=== PATIENT | female | born 1955 | race Asian ===

== ENCOUNTER 2025-03-09 21:59 | Observation (INO) | payer OTHER, MEDICARE, SELFPAY ==
[2025-03-09 18:48] VITALS: BP 161/89
[2025-03-09 19:06] LABS: Hematocrit 34.9 % (37.0-47.0); Hemoglobin 11.5 g/dL (12.0-16.0); Mean Corp Hgb Conc. 33.0 g/dL (33.0-37.0); Mean Corpuscular Volume 93.3 fL (81.0-99.0); Nucleated Red Blood Cells % 0 %; Platelet Count 189 10^3/uL (130-400); Red Cell Dist. Width 12.3 % (11.5-14.5)
[2025-03-09 19:35] LABS: ALT (SGPT) 31 U/L (0-35); AST (SGOT) 32 U/L (14-36); Albumin 4.4 g/dl (3.5-5.0); Alkaline Phosphatase 47 U/L (38-126); Blood Urea Nitrogen 21 mg/dl (7-17); Calcium 9.5 mg/dl (8.4-10.2); Carbon Dioxide 31 mmol/L (22-30); Chloride 106 mmol/L (98-107); Glucose 126 mg/dl (70-99); Lipase 122 U/L (23-300); Potassium 3.7 mmol/L (3.5-5.1); Sodium 142 mmol/L (135-145); Total Protein 7.4 g/dl (6.3-8.2); eGFR > 60.00
[2025-03-09 20:09] VITALS: BMI 19.4
[2025-03-09 20:28] VITALS: BP 116/62
--- NOTE | 2025-03-09 20:46 | ED.GENMED ---
History of Present Illness
General
Chief Complaint: Vomiting Blood
Source: patient
Exam Limitations: none
Time Seen by Provider: 03/09/25 20:39
History of Present Illness
History of Present Illness:
See MDM
Past History
Past History
ED Past Medical History: None
ED Past Surgical History: None
Social History
Tobacco: Non-smoker
Alcohol: None
Phy Exam
Physical Exam
Physical Exam:
See MDM
Course
Orders/Labs/Results
Orders:
Orders
03/09/25 19:00
Type And Crossmatch [Type+Screen] Urgent
Complete Blood Count/With Diff Urgent
Comprehensive Metabolic Panel Urgent
Lipase Urgent
03/09/25 20:45
IV Insert/Care/Rem.- Treatment PRN
Pantoprazole 80 mg/100 ml Nss [Protonix] 80 mg in 100 ml IV NOW
Pantoprazole [Protonix IV] 80 mg IV NOW STA
Abnormal Lab Results
03/09/25
19:00
RBC 3.74 L 10^6/uL
(4.20-5.40)
Hgb 11.5 L g/dL
(12.0-16.0)
Hct 34.9 L %
(37.0-47.0)
Carbon Dioxide 31 H mmol/L
(22-30)
BUN 21 H mg/dl
(7-17)
Glucose 126 H mg/dl
(70-99)
03/09/25 19:00
03/09/25 19:00
Vital Signs
Initial and Last Documented VS:
Initial Vital Signs
Temp Pulse Resp BP Pulse Ox
98.6 F 86 16 161/89 98
03/09/25 18:48 03/09/25 18:48 03/09/25 18:48 03/09/25 18:48 03/09/25 18:48
Last Documented Vital Signs
Temp Pulse Resp BP Pulse Ox
98.6 F 86 16 161/89 98
03/09/25 18:48 03/09/25 18:48 03/09/25 18:48 03/09/25 18:48 03/09/25 20:25
MDM/Problems Addressed
Differential Diagnosis Includes:
Note:
CHIEF COMPLAINT(S)
Vomiting blood starting at 6 p.m. today.
HISTORY OF PRESENT ILLNESS
The patient is a 69-year-old female with no significant past medical history, medications, or known allergies, presenting with hematemesis. The vomiting of blood began at 6 p.m. today. The patient reported vomiting 'two or three times' and described
the vomitus as red in color with some clots. There is an associated single episode of nosebleed following the vomiting that was short-lived. She denies any abdominal pain or recent dietary changes. The patient does not take blood thinners. The
vomiting episode appears isolated, with no further symptoms reported.
PHYSICAL EXAM
General: Alert, no acute distress.
Skin: Warm, dry.
Head: Normocephalic, atraumatic
Neck: Appears supple, trachea midline.
Eyes, Ears, Nose, Mouth, and Throat: Moist mucous membranes. Posterior pharynx clear
Cardiovascular: No signs of cyanosis
Respiratory: Respirations are non-labored.
Abdomen: Non-distended. Soft and nontender
Musculoskeletal: No deformities
Neurological: No focal neurological deficit observed.
Psychiatric: Cooperative, appropriate mood and affect.
PLAN
The plan includes starting the patient on pantoprazole (Protonix) to reduce stomach acid, which could assist in healing a potential stomach ulcer. The patient is recommended to stay overnight for observation to monitor the effect of the medication
and ensure there is no further bleeding. The need for an upper gastrointestinal endoscopy is considered, though not immediately planned�mentioned for potential assessment to rule out ulcers or malignancy if symptoms persist.
DIFFERENTIAL DIAGNOSIS
The Differential Diagnosis includes, in no particular order and is not limited to:
- Peptic ulcer disease
- Gastritis
- Esophageal varices
- Jihan-Beauchamp tear
- Esophageal cancer
- Gastric cancer
- Coagulation disorder
- Vascular malformation
- Foreign body ingestion
- Angiodysplasia
SUMMARY OF ENCOUNTER
The patient was seen in the emergency department due to vomiting blood with a potential isolated episode, accompanied by a brief nosebleed that followed the emesis. The main intervention was the initiation of pantoprazole therapy, aiming to reduce
stomach irritation potentially due to an ulcer or other gastrointestinal issues. Given the uncertainty of the cause, hospital admission was considered prudent to observe any overnight changes, although the nature of the follow-up and the necessity
of an endoscopy the next day are contingent upon the patients condition and response to medication.
DISPOSITION
Admission for overnight observation.
MEDICAL DECISION MAKING
-Category 1 Tests and documents: Lab results were mentioned indirectly with 'Her blood looks fine.'
-Risk:
Prescription drug management with pantoprazole initiated. The possibility of an endoscopic procedure was discussed. Decision taken to admit due to the complexity of the presenting complaint and the potential severity of the underlying condition.
DIAGNOSIS
- Hematemesis (K92.0)
- Observation for possible peptic ulcer disease (K25.9)
SUMMARY OF ENCOUNTER
The patient presented with several episodes of bright red hematemesis with clots. Despite being stable, there is concern due to the patients age and the nature of her symptoms. It was decided to start a proton pump inhibitor (PPI) drip to reduce
gastric acid production and potentially aid in healing any gastric mucosal injury. Admission to the hospital was planned to allow further evaluation and monitoring, with a gastroenterology consultation and possible endoscopy considered if deemed
necessary to identify the source of bleeding.
DISPOSITION
Admission for further evaluation and monitoring.
PLAN
Initiate PPI therapy and admit for observation. Consider a gastroenterology evaluation and possible endoscopy if symptoms persist or worsen.
MEDICATION RECONCILIATION
Initiated a PPI drip for treatment.
MEDICAL DECISION MAKING
-Complexity of Data Reviewed: Chronic conditions affecting care; no significant past medical history noted. Differential Diagnosis includes peptic ulcer disease, gastritis, esophageal varices, Jihan-Beauchamp tear, esophageal cancer, gastric cancer,
coagulation disorder, vascular malformation, foreign body ingestion, and angiodysplasia.
-Data:
Category 1: Tests and documents � Not available in back gray cloth washer.
Category 3: Discussion of management with hospital service regarding admission and need for gastroenterology evaluation.
-Risk: Prescription drug management was initiated with a PPI drip. An admission decision was made due to the potential complexity and severity of the underlying condition.
DIAGNOSIS
- Hematemesis (K92.0)
- Observation for possible peptic ulcer disease (K25.9)
*Pulse Oximetry
SaO2: 98
Oxygen Mode of Delivery: Room air
Patient hypoxic: no
*Critical Care Note
Total Time (30-74mins, 75-104mins- exclusive of procedures): Not Applicable
ED Attending Note
-
Portions of this chart may have been created with voice recognition software.� Occasional wrong word or��sound alike� substitutions may have occurred due to the inherent limitations of voice recognition software.
Discharge Plan
Departure
Patient Disposition: Admit
Date of Disposition: 03/09/25
Time of Disposition: 20:58
Admit to: Med/Surg
Presentation/result/management discussed w/ accepting MD/DO: Hospitalist
Discharge Problem:
Hematemesis
Interventions
Interventions:
*Risk Screen - Suicide Last Done: 03/09/25 18:48
*General Assessment Last Done: 03/09/25 20:08
*Neglect/Abuse Screening Last Done: 03/09/25 20:09
*ED- Fall Risk Assessment Last Done: 03/09/25 20:08
*ED COVID-19 Vaccine History Last Done: 03/09/25 20:08
*ED Influenza Vaccine History Last Done: 03/09/25 20:08
IU-Eqrwax-Gupakwijat Assessment Last Done: 03/09/25 20:25
ED- Cardiac Assessment Last Done: 03/09/25 20:25
ED- Pulmonary Assessment Last Done: 03/09/25 20:25
Discharge Date and Time
Print Language: KENYAN
[2025-03-09 21:00] VITALS: BP 131/60
--- NOTE | 2025-03-09 21:00 | W.PN.UPDATE ---
Update Note
Progress Note Update
This note serves as an addendum to the H&P by ceramic worker Brody Hightower
HPI
64F HX Hep B ( Treated) No prior HX seen at ER:
- vomiting red blood but no clots
- not on blood thinner
- denied abdominal pain
- also nose bleed after vomiting - has stopped
Relevant VS
Temp Pulse Resp BP Pulse Ox
98.6 F 86 16 161/89 98
03/09/25 18:48 03/09/25 18:48 03/09/25 18:48 03/09/25 18:48 03/09/25 20:52
PE
Gen: NAD
HEENT: anicteric
Neck: supple
Lungs: CTA
Cor: RRR S1 S2
Abdomen:�Non-distended. Soft and nontender
SCRAP METAL PROCESSING WORKER: AAO3 , NFND
Relevant Data�
03/09/25
19:00
WBC 5.6
Hgb 11.5 L
MCV 93.3
Plt Count 189
Carbon Dioxide 31 H
BUN 21 H
Creatinine 0.8
eGFR > 60.00
Total Bilirubin 0.4
AST 32
ALT 31
Alkaline Phosphatase 47
Lipase 122
NO PRIOR hospitalist admission:
ASSESSMENT & PLAN
Pending Rx reconciliation
Acute hematemesis; DDX: gastric CA , PUD, Gastritis, Esophageal varices, Jihan-Beauchamp tear, epistaxis
Normocytic anemia - acute vs chronic
Hemodynamically stable
Denied NSAIDS
Denied ETOH
HX UGIB 5 yrs ago s/p EGD at [facility] ? esophageal stricture
- T & S
- Blood consent
- Trend H & H
- Agree with PPI gtt
- IVF
- NPO except ice chips
- GI consult
HX Hep B on PO Vemlidy
- Hold chronic Vemlidy
DVT Px: SCD
Full code
TLM
--- NOTE | 2025-03-09 21:00 | HPS.HSE ---
Family Physician
-
Family Physician:
Chief Complaint
-
Hematemesis
History of Present Illness
69-year-old female complaining of vomiting that began at 6 PM today 2-3 times. She reports the vomit was red in color . During her second time of vomiting it also came out of her nose I reviewed pictures on her phone that showed small amount
bright red thin vomit in the sink. The patient denies alcohol use, NSAID use, aspirin use. She drinks 16 ounce coffee a day and Body Armor with no caffeine. She denies fever, chills, chest pain palpitations, cough, shortness of breath abdominal
pain, diarrhea, urinary symptoms. She is history of hepatitis B since prior to 1995 when she came to [facility] she is currently on Vemlidy 25 mg daily, History of GI bleed approximately 5 years ago thinks at [facility] had endoscopy possible
stricture per family member but unsure
Medical History
Past Medical History
Past Medical History: Reports Other
Additional Past Medical History:
Hepatitis B since before 1995
History of GI bleed approximately 5 years ago thinks at [facility] had endoscopy possible stricture per family member but unsure
Past Surgical History: Reports None
Social History
Tobacco: Non-smoker
Alcohol: None
Drug: None
Personal: Single
Living: With Family
Employment: Retired
Family History
Family History: Not pertinent
Allergies / Home Medications
Allergies reflects when Allergies were last updated in [facility].
Home Medications with original date entered in [facility]
Allergy/Medication List:
Allergies
Allergy/AdvReac Type Severity Reaction Status Date / Time
No Known Allergies Allergy Verified 03/09/25 18:52
Home Medications
tenofovir alafenamide 25 mg tablet (Vemlidy) 25 mg PO DAILY 03/09/25
Review of Systems
-
History Source: Patient and Family (Family member translating as patient speaks New Zealander)
A 12 point ROS was completed and negative except as noted: Yes
Constitutional: Denies Fever or Chills
EENT: Denies Sore Throat or Runny Nose
Respiratory: Denies Cough or Trouble Breathing
Cardiac: Denies Chest Pain, Diaphoresis, Palpitations or Syncope
Abdomen/GI: Reports Nausea and Vomiting (Bright red in color x 3 small episodes); Denies Abdominal Pain, Diarrhea, Constipated, Bloody Stools or Black Stools
: Denies Dysuria, Frequency, Flank Pain, Incontinence or Difficulty Voiding
Musculoskeletal: Denies Joint Pain or Edema
Skin: Denies Itching or Rash
Neurological: Denies Dizzy, Headache or Weakness
Endocrine: Reports No Symptoms
Hematologic/Lymphatic: Reports No Symptoms
Psych: Reports Calm
Physical Exam
Vital Signs
Vital Signs
Temp Pulse Resp BP Pulse Ox
98.6 F 86 16 161/89 98
03/09/25 18:48 03/09/25 18:48 03/09/25 18:48 03/09/25 18:48 03/09/25 20:52
Physical Exam
General: Comfortable and Conversant; No Pain, Fever or Chills
HEENT: NormoCephalic, Anicteric, Moist mucous membranes, PERRLA, [place] Conjunctivae and No Ptosis
Respiratory: Clear; No Wheezes, Rales or Rhonchi
Cardiac: S1/S2 and Regular Rhythm; No Murmur, Rub, Gallop or Peripheral Edema
Breast: Deferred by me
GI: Soft, Non Tender, Non Distended, Normal Bowel Sounds and No Hepatosplenomegaly
Rectal: Deferred by Provider
Genito-urinary: Deferred by me
Musculoskeletal: No Clubbing, No Cyanosis and No Edema
Skin: Warm and Dry; No Rash or Jaundice
Neuro: AO x 3 (Per sister at bedside translating in New Zealander), No Motor Deficits, Nonfocal/grossly intact, Cranial Nerves Intact and No Sensory Deficits; No Slurred Speech, Facial Droop, Tremors or Sedated
Psych: Calm
Laboratory Results
-
03/09/25 19:00
03/09/25 19:00
Laboratory Results
Total Bilirubin 0.4 mg/dl (0.2-1.3) 03/09/25 19:00
AST 32 U/L (14-36) 03/09/25 19:00
ALT 31 U/L (0-35) 03/09/25 19:00
Alkaline Phosphatase 47 U/L (38-126) 03/09/25 19:00
Lipase 122 U/L (23-300) 03/09/25 19:00
Impression/Plan
-
Impression/plan:
Observation MedSurg
#Hematemesis concern for GI bleed/PUD/Jihan-Beauchamp tear/Malignancy
#History of GI bleed approximately 5 years ago thinks at [facility] had endoscopy possible stricture per family member but unsure
- Reported 3 episodes of vomiting red in color with clots
- Hgb 11.5 no prior labs
--type and screen, obtain blood consent
- Consult GI
- IV PPI bolus with drip
-IV Zofran as needed
-IV NSS
-N.p.o. FOR ENDO likely TMR 03/10/25
- Follow CBC, check inr
#Hepatitis B
HOLD Vemlidy 25 mg daily
DVT prophylaxis
SCDs
Full code
[2025-03-09] MEDS: PROTONIX IV 80 MG IV (21:04)
[2025-03-09] MEDS: PROTONIX 100 IV (21:07)
[2025-03-09 22:00] VITALS: BP 132/66
[2025-03-09 22:40] LABS: INR 0.95; PT 13.0 Sec (11.4-14.6)
[2025-03-09 22:55] VITALS: BP 145/63
[2025-03-09 22:56] VITALS: BMI 19.1
[2025-03-09] MEDS: NSS 1000 IV (23:14)
[2025-03-10 01:11] LABS: Hematocrit 30.8 % (37.0-47.0); Hemoglobin 10.4 g/dL (12.0-16.0)
[2025-03-10 03:15] VITALS: BP 107/51
[2025-03-10 07:06] VITALS: BP 126/65
[2025-03-10 07:16] LABS: ALT (SGPT) 27 U/L (0-35); AST (SGOT) 29 U/L (14-36); Albumin 3.6 g/dl (3.5-5.0); Alkaline Phosphatase 38 U/L (38-126); Blood Urea Nitrogen 19 mg/dl (7-17); Calcium 8.3 mg/dl (8.4-10.2); Carbon Dioxide 24 mmol/L (22-30); Chloride 114 mmol/L (98-107); Estimated Creatinine Clearance 54 ml/min; Glucose 105 mg/dl (70-99); Potassium 4.2 mmol/L (3.5-5.1); Sodium 137 mmol/L (135-145); Total Protein 6.6 g/dl (6.3-8.2); eGFR > 60.00
[2025-03-10 07:17] LABS: Hematocrit 30.1 % (37.0-47.0); Hemoglobin 10.6 g/dL (12.0-16.0); Mean Corp Hgb Conc. 35.2 g/dL (33.0-37.0); Mean Corpuscular Volume 89.9 fL (81.0-99.0); Nucleated Red Blood Cells % 2.7 %; Platelet Count 158 10^3/uL (130-400); Red Cell Dist. Width 12.2 % (11.5-14.5)
--- NOTE | 2025-03-10 09:03 | CON.GI ---
Consultation
-
Date/Time Consultation Requested: 03/09/25 9:44pm
Date/Time Consultation Performed: 03/10/25 9:04am
Requesting Provider: Tamara Hightower
Performing Provider: Abelardo Zheng
Reason for Consultation: Hematemesis
Medical History
Chief Complaint / HPI
Chief Complaint: Hematemesis
History of Present Illness:
History was obtained with assistance of [place]an hearing screener. 69yo female presents with several episodes of hematemesis last night and also nose bleeding. She reports a prior episode years ago and had EGD. She states something was found to be
enlarged (does not recall what it was). Her sister also added history. She has had colonoscopy as well in the past that was negative and had Cologuard this year negative. She denies NSAIDs or EtOH. Takes Tylenol. No abd pain, dizzy, light
headed. She showed me a picture of the blood-- spray of BRB in the sink.
Past Medical History
Past Medical History: Other (Chronic Hep B on Vemlidy)
Past Surgical History: None
Social History
Tobacco: Non-Smoker
Alcohol: None
Family History
Family History: Reviewed & Not Pertinent
Allergies / Home Medications
Allergy/AdvReac Type Severity Reaction Status Date / Time
No Known Allergies Allergy Verified 03/09/25 18:52
�Medication �Instructions �Recorded
tenofovir alafenamide 25 mg tablet 25 mg PO DAILY 03/09/25
(Vemlidy)
Review of Systems
-
All other systems: A 12 pt ROS was Negative except as stated above in HPI
Vital Signs
Temp Pulse Resp BP Pulse Ox
98.2 F 76 18 126/65 98
03/10/25 07:06 03/10/25 07:06 03/10/25 07:06 03/10/25 07:06 03/10/25 07:06
Physical Exam
Exam
General: Well Developed, Well Nourished and No Apparent Distress
HEENT: Normocephalic and Atraumatic
Respiratory: Non Labored Respirations
GI: Soft, Non Tender and Non Distended
Results
WBC 4.4 10^3/uL (4.8-10.8) L 03/10/25 06:33
Hgb 10.6 g/dL (12.0-16.0) L 03/10/25 06:33
Hgb Cancelled 03/10/25 06:33
Hct 30.1 % (37.0-47.0) L 03/10/25 06:33
Hct Cancelled 03/10/25 06:33
MCV 89.9 fL (81.0-99.0) 03/10/25 06:33
Plt Count 158 10^3/uL (130-400) 03/10/25 06:33
Absolute Neuts (auto) 2.8 10^3/uL (1.4-6.5) 03/10/25 06:33
PT 13.0 Sec (11.4-14.6) 03/09/25 22:23
INR 0.95 03/09/25 22:23
Sodium 137 mmol/L (135-145) 03/10/25 06:33
Potassium 4.2 mmol/L (3.5-5.1) 03/10/25 06:33
Chloride 114 mmol/L (98-107) H 03/10/25 06:33
Carbon Dioxide 24 mmol/L (22-30) 03/10/25 06:33
BUN 19 mg/dl (7-17) H 03/10/25 06:33
Creatinine 0.7 mg/dL (0.6-1.0) 03/10/25 06:33
Calcium 8.3 mg/dl (8.4-10.2) L 03/10/25 06:33
Total Bilirubin 0.9 mg/dl (0.2-1.3) 03/10/25 06:33
AST 29 U/L (14-36) 10/26/25 06:33
ALT 27 U/L (0-35) 03/10/25 06:33
Alkaline Phosphatase 38 U/L (38-126) 03/10/25 06:33
Lipase 122 U/L (23-300) 03/09/25 19:00
Diagnostic Image Results:
Prior GI Procedures:
EGD:
Colonoscopy:
Assessment / Plan
-
Summary: 69yo female presents with hematemesis, several episodes at home- spray of BRB seen in pics. Denies abd pain, sycope, NSAIDs, EtOH. She has chronic Hep B on Vemlidy for years and viral load negative. No hx advanced liver disease. Also
noted nose bleed at same time as vomit. Initial vomit was bloody last night
Impression:
Hematemesis
Chronic Hep B
Nose bleed
Recommendations:
Plan EGD today
Protonix gtt for now
Hgb has been stable
R/O MW tear, ulcer, ectasia. Also oropharyngeal cause is also possible, maybe worth seeing ENT after d/c
-
-
Thank you for consultation and allowing me to participate in the patient's care. Please call the operations supervisor chemical cleaning GI physician during the after hours with any questions or concerns.
[2025-03-10] MEDS: PROTONIX 100 IV (09:23)
[2025-03-10 11:24] VITALS: BP 126/70
--- NOTE | 2025-03-10 11:30 | W.PN.HOSP.TC ---
Today's Communication/Plan
-
egd today
IVF
ppi gtt
diet post procedure per GI
trend h/h
Assessment / Plan
Assessment / Plan
#Hematemesis concern for GI bleed/PUD/Jihan-Beauchamp tear/Malignancy
#History of GI bleed approximately 5 years ago thinks at [facility] had endoscopy possible stricture per family member but unsure
- Reported 3 episodes of vomiting red in color with clots
- Hgb 10-11. No further episode since being admitted
-type and screen,
-Consulted GI
- IV PPI bolus with drip
-IV Zofran as needed
-IV NSS
-N.p.o. FOR ENDO today
#Hepatitis B
restart post EGD Vemlidy 25 mg daily
DVT prophylaxis
SCDs in setting of hematemesis
Full code
Anticipated Discharge: > 48 hours
Subjective/Interval History
-
Date of Service: March 10, 2025
Seen and examined using student ministries director video
States of episode of vomiting yesterday
Denies any abdominal pain. Denies any nausea or vomiting currently
States had rice for lunch yesterday
Objective Data
-
Labs:
Laboratory Results
03/09/25 03/10/25 03/10/25
22:55 01:06 06:33
WBC 4.4 L
Hgb Cancelled 10.4 L Cancelled
Hct Cancelled 30.8 L
Plt Count
Sodium
Potassium
Chloride
Carbon Dioxide
BUN
Creatinine
Glucose
Calcium
Total Bilirubin
AST
ALT
Alkaline Phosphatase
03/10/25 03/10/25 03/10/25
06:33 06:33 12:30
WBC
Hgb 10.6 L Pending
Hct Cancelled 30.1 L Pending
Plt Count 158
Sodium 137
Potassium 4.2
Chloride 114 H
Carbon Dioxide 24
BUN 19 H
Creatinine 0.7
Glucose 105 H
Calcium 8.3 L
Total Bilirubin 0.9
AST 29
ALT 27
Alkaline Phosphatase 38
Vital Signs:
Vital Signs
Temp Pulse Resp BP Pulse Ox
98.0 F 76 16 126/70 97
03/10/25 11:24 03/10/25 11:24 03/10/25 11:24 03/10/25 11:24 03/10/25 11:24
Physical Exam
-
General: No Apparent Distress and Cachectic
HEENT: Normocephalic, Atraumatic and Moist Mucous Membranes
Respiratory: Non Labored Respirations; Negative Accessory Resp Muscle Use
Cardiac: Regular Rhythm (tele noted)
GI: Soft, Nontender, Nondistended and Normal Bowel Sounds; Negative Organomegaly
Rectal: Deferred by Provider
Musculoskeletal: No Clubbing, No Cyanosis and No Edema
Skin: Negative Rash
Neuro: Awake, Alert, Oriented, AO x 3, No Motor Deficits and Nonfocal/Grossly Intact
Psych: Calm
Data Reviewed
-
Total Time Spent with Patient (in minutes): 55
[2025-03-10 12:40] LABS: Hematocrit 31.0 % (37.0-47.0); Hemoglobin 10.3 g/dL (12.0-16.0)
[2025-03-10] MEDS: NSS 1000 IV (14:03)
--- NOTE | 2025-03-10 14:46 | W.PN.UPDATE ---
Update Note
Progress Note Update
EGD done
Mild erythema stomach - bx'd r/o Hpylori
Scant blood seen in oropharynx
REC:
Regular diet
OK for d/c
ENT eval as outpt given scant blood in oropharynx and nose bleed with hematemesis
Await path
Will sign off.
[2025-03-10 15:00] VITALS: BP 112/63
--- NOTE | 2025-03-10 16:02 | W.DCSUMMARY ---
Discharge Summary
Discharge Data
Date of Admission: 03/09/25
Date of Discharge: 03/10/25
-
Pending Results: Yes
Additional Pending Results:
EGD biopsy results follow-up with gastroenterology
Hospital Course
69-year-old female past medical history hepatitis B who is presenting from home with complaints of vomiting with blood noted. Patient was kept NPO. IV fluid was started. PPI drip was started. Gastroenterology consulted. Patient underwent
endoscopy which showed mild erythema in the stomach. Biopsies were taken. Scant blood in the oropharynx. Postprocedure patient did well. Hemoglobin was stable. IV fluid was discontinued. Patient tolerated diet well. Recommend outpatient ENT
follow-up.
Discharge Plan
-
Patient Disposition: Home (Routine Discharge)
Discharge Diagnosis/Procedures: Hematemesis
Epistaxis
Condition: Fair
Diet: As tolerated
Activity: As tolerated
Driving Restrictions: No driving for 24 hours
Referrals:
NONE,* [Family Provider, Internal Medicine] - in less than 1 week
Karen Newberry MD [Active, Otology] - in one to two weeks
Referral Note: follow up for scant blood in oropharynx and nose bleed
Prescriptions:
Continued
Vemlidy 25 mg Tablet
25 mg PO DAILY
Discharge Orders:
Discharge Patient (As Directed); Ordered 03/10/25
Ordered By: Haim Do
Discharge Date and Time
Print Language: BELARUSIAN
--- NOTE | 2025-03-10 16:12 | PTCARENOTE ---
Received back from GI lab. Patient and sister eager for update if she can be discharged today. Per Dr. Do, can be dc'd if tolerates diet.
--- NOTE | 2025-03-10 16:21 | CM ---
Met with patient and her sisterMarija at the bedside
Initial assessment completed w/ sister; patient does not speak Slovak
LLANOS form explained; form signed @ [id number]
Patient lives in [place], [place]; she will go to sister's home in [place]. 13 steps to enter one floor apartment; railing on stairs; bath has tub w/ shower
Patient is independent with ambulation, stairs, and ADLs
No SNF or Home Health utilization history
Sister will transport home
Plan: Discharge to sister's home today; no needs
[2025-03-10 17:22] VITALS: BP 119/64
== END 2025-03-10 17:54 | disposition home or self-care (01) ==
LOC: 4 WEST ACU 21:59
PROVIDERS: Clinical Nurse Specialist Family Health; Student in an Organized Health Care Education/Training Program; ADMITTING PHYSICIAN Internal Medicine; ATTENDING PHYSICIAN Hospitalist; CONSULT PHYSICIAN Specialist; EMERGENCY PHYSICIAN Student in an Organized Health Care Education/Training Program
DX: K92.0 Hematemesis (principal); B18.1 Chronic viral hepatitis B without delta-agent; B96.81 Helicobacter pylori [H. pylori] as the cause of diseases classified elsewhere; K31.89 Other diseases of stomach and duodenum; R04.0 Epistaxis
CPT/HCPCS: 43239; 80053; 83690; 85014; 85018; 85025; 85610; 86850; 86900; 86901; 88305; 88342; 96374; 99284; G0378